=== PATIENT | female | born 1990 | race Caucasian/White ===

== ENCOUNTER 2018-05-25 11:13 | Emergency (ER) | payer OTHER ==
[~2018-05-25] VITALS: Ht 160 cm; Wt 69.4 kg
[2018-05-25 12:15] LABS: Urine Bacteria FEW /hpf (None Seen); Urine Blood Negative /uL (Negative); Urine Mucus FEW (None Seen); Urine Specific Gravity 1.023 (1.001-1.035); Urine WBC 2 /hpf (0 - 5)
[2018-05-25 12:40] LABS: Basophils # (auto) 0 uL; Basophils % (auto) 0.2 % (0.0-2.0); Eosinophils # (auto) 0.1 uL; Eosinophils % (auto) 1.7 % (0.0-7.0); Hematocrit 40.9 % (36.0-46.0); Hemoglobin 13.9 g/dL (12.2-16.2); Lymphocytes % (auto) 25.6 % (10.0-50.0); Mean Corpuscular Hemoglobin 29.6 pg (28.0-32.0); Mean Corpuscular Hgb Conc. 33.9 g/dL (32.0-36.0); Mean Corpuscular Volume 87.3 fL (80.0-100.0); Monocytes # (auto) 0.3 uL; Monocytes % (auto) 7.7 % (0.0-12.0); Neutrophils # (auto) 2.5 uL; Neutrophils % (auto) 64.8 % (37.0-80.0); Nucleated Red Blood Cells % 0.1 %; Platelet Count (auto) 224 10^3/uL (140-450); Red Blood Cells 4.69 10^6/uL (4.0-5.20); Red Cell Distribution Width 13.8 % (11.8-14.3); White Blood Cell 3.9 10^3/uL (4.4-10.8)
[2018-05-25 12:41] LABS: BUN/Creatinine Ratio 18.7; Calcium 8.5 mg/dL (8.5-10.1)
[2018-05-25 14:03] VITALS: BP 142/82
== END 2018-05-25 14:05 | disposition home or self-care (01) ==
LOC: ER 11:13
DX: B34.9 Viral infection, unspecified (principal)
CPT/HCPCS: 36415; 76705; 80048; 81001; 81025; 85025

== ENCOUNTER 2019-05-25 18:12 | Emergency (ER) | payer MEDICAID, OTHER ==
[~2019-05-25] VITALS: Ht 160 cm; Wt 71.2 kg
[2019-05-25 19:08] LABS: Urine Bacteria FEW /hpf (None Seen); Urine Blood Negative /uL (Negative); Urine Mucus FEW (None Seen); Urine WBC 20 /hpf (0 - 5)
[2019-05-25 23:10] VITALS: BP 129/74
== END 2019-05-25 23:23 | disposition home or self-care (01) ==
LOC: ER 18:12
DX: O20.0 Threatened abortion (principal); O23.41 Unspecified infection of urinary tract in pregnancy, first trimester; Z3A.01 Less than 8 weeks gestation of pregnancy
CPT/HCPCS: 36415; 76801; 81001; 81025; 84702

== ENCOUNTER 2021-01-14 20:25 | Emergency (ER) | payer MEDICAID ==
[~2021-01-14] VITALS: Ht 160 cm; Wt 72.6 kg
[2021-01-14] MEDS ORDERED: ONDANSETRON HCL 4 MG/2 ML VIAL IM ONE (23:45)
[2021-01-15 00:43] VITALS: BP 118/79
== END 2021-01-15 01:03 | disposition home or self-care (01) ==
LOC: ER 20:26
DX: F41.9 Anxiety disorder, unspecified (principal); F41.0 Panic disorder [episodic paroxysmal anxiety]; R11.2 Nausea with vomiting, unspecified; K59.00 Constipation, unspecified; Z86.2 Personal history of diseases of the blood and blood-forming organs and certain disorders involving the immune mechanism
CPT/HCPCS: 93005; 96372; 99283; J2405

== ENCOUNTER 2022-05-08 12:47 | Emergency (ER) | payer MEDICAID ==
[~2022-05-08] VITALS: Ht 160 cm; Wt 70.0 kg
[2022-05-08 13:22] LABS: Basophils # (auto) 0 10 ^3/uL (0-0.2); Mean Corpuscular Hemoglobin 19.5 pg (28.0-32.0)
[2022-05-08 13:25] LABS: Basophils % (auto) 0.3 % (0.0-2.0); Eosinophils # (auto) 0.1 10 ^3/uL (0-0.8); Eosinophils % (auto) 0.9 % (0.0-7.0); Hematocrit 24.1 % (36.0-46.0); Hemoglobin 7.4 g/dL (12.2-16.2); Lymphocytes # (auto) 0.9 10 ^3/uL (0.4-5.4); Mean Corpuscular Hgb Conc. 30.7 g/dL (32.0-36.0); Mean Corpuscular Volume 63.6 fL (80.0-100.0); Monocytes # (auto) 0.5 10 ^3/uL (0-1.3); Monocytes % (auto) 6.5 % (0.0-12.0); Neutrophils # (auto) 5.5 10 ^3/uL (1.6-8.6); Neutrophils % (auto) 79.3 % (37.0-80.0); Red Blood Cells 3.79 10^6/uL (4.0-5.20); White Blood Cell 6.9 10^3/uL (4.4-10.8)
[2022-05-08] MEDS ORDERED: ASPirin 325 MG TAB PO ONE (13:30)
[2022-05-08 13:57] LABS: Potassium 3.5 mmol/L (3.5-5.1)
[2022-05-08 14:04] LABS: Albumin 4.1 g/dL (3.4-5.0); BUN/Creatinine Ratio 13.8; Bilirubin, Total 0.4 mg/dL (0.2-1.0); Calcium 8.8 mg/dL (8.5-10.1); Total Protein 7.3 g/dL (6.4-8.2)
[2022-05-08 14:07] LABS: Urine Bacteria NONE SEEN /hpf (None Seen); Urine Blood Negative /uL (Negative); Urine Hyaline Cast FEW /lpf (0 - 2); Urine Mucus FEW (None Seen); Urine Specific Gravity 1.015 (1.001-1.035); Urine WBC 1 /hpf (0 - 5)
[2022-05-08] MEDS ORDERED: IOHEXOL 350 MG/ML 100ML IJ ONE (14:49)
[2022-05-08 18:33] VITALS: BP 128/78
== END 2022-05-08 18:13 | disposition home or self-care (01) ==
LOC: ER 12:47
DX: R07.89 Other chest pain (principal); D64.9 Anemia, unspecified; Z32.02 Encounter for pregnancy test, result negative
CPT/HCPCS: 36415; 71275; 80053; 81001; 81025; 84484; 85025; 85379; 93005; 99285; Q9967